=== PATIENT | male | born 1975 | race African-American/Black ===

== ENCOUNTER 2024-03-17 12:56 | Emergency (ER) | payer OTHER ==
--- NOTE | 2024-03-17 13:53 | RAD REPORT ---
EXAMINATION: XR RIGHT FOREARM CLINICAL INDICATION: . PAIN TECHNIQUE:Two view radiograph of the right forearm were obtained. COMPARISON: No prior exam. FINDINGS: No bone or joint abnormality detected.
--- NOTE | 2024-03-17 13:54 | RAD REPORT ---
EXAM: XR RIGHT HAND HISTORY: Pain. Pain;Swelling COMPARISON: None TECHNIQUE: Multiple projections of the right hand submitted. FINDINGS: Mild diffuse osteopenia seen.. Mild degenerative changes present in multiple joints includi ng the radiocarpal joint as well as DIP and PIP joints of the fingers. No acute fracture evident. IMPRESSION: Mild arthritic changes are present without acute finding evident.
[2024-03-17] MEDS ORDERED: IBUPROFEN 200 MG TAB PO ONE (14:06)
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
[2024-03-17 15:19] VITALS: BP 134/88; TEMP 98.2; O2SAT 99
== END 2024-03-17 15:06 | disposition home or self-care (01) ==
LOC: ER 12:56
DX: S50.11XA Contusion of right forearm, initial encounter (principal)
CPT/HCPCS: 99284